=== PATIENT | female | born 1950 | race African-American/Black ===

== ENCOUNTER 2017-01-24 18:06 | Inpatient (IN) ==
[2017-01-24] MEDS ORDERED: methylPREDNISolone SOD SUC 125 MG/2 ML VIAL IV STA (18:54)
[2017-01-24] MEDS ORDERED: MORPHINE 2 MG/1 ML SYRINGE IV STA (18:54)
[2017-01-24] MEDS ORDERED: FUROSEMIDE 40 MG/4 ML VIAL IV STA (18:54)
[2017-01-24] MEDS ORDERED: ALBUTEROL/IPRATROPIUM 3 ML NEB RESP TX STA (18:54)
[2017-01-24] MEDS ORDERED: ALUM/MAG/SIMETH/LIDO VISC 1:1 30 ML BOTTLE PO STA (18:54)
[2017-01-24] MEDS ORDERED: ONDANSETRON 4 MG/2 ML VIAL IV STA (18:54)
[2017-01-24] MEDS ORDERED: NITROGLYCERIN 2% OINT 1 INCH/GM PACK TOP STA (18:54)
[2017-01-24] MEDS ORDERED: ASPIRIN 325 MG TABLET PO STA (18:54)
[2017-01-24] MEDS ORDERED: ASPIRIN 325 MG TABLET ONE (19:11)
[2017-01-24] MEDS ORDERED: MORPHINE 2 MG/1 ML SYRINGE ONE (19:11)
[2017-01-24] MEDS ORDERED: NITROGLYCERIN 2% OINT 1 INCH/GM PACK TOP ONE (19:11)
[2017-01-24] MEDS ORDERED: ONDANSETRON 4 MG/2 ML VIAL ONE (19:11)
[2017-01-24] MEDS ORDERED: ALUM/MAG/SIMETH/LIDO VISC 1:1 30 ML BOTTLE PO ONE (19:11)
[2017-01-24 19:13] LABS: Basophils % 0.3 % (0.0-0.8); Hematocrit 36.3 VOL% (35.7-47.0); Hemoglobin 12.1 GM/DL (12.0-16.0); Immature Granulocytes % 0.1 %; Immature Granulocytes Absolute 0.01 #; Lymphocytes # 2.1 10*3/uL (1.4-4.0); Lymphocytes % 31.4 % (21.3-54.2); Mean Corpuscular HGB Conc 33.3 GM/DL (32-36); Mean Corpuscular Hemoglobin 30 PG (27-34); Mean Corpuscular Volume 89.6 FL (87-102); Mean Platelet Volume 11.5 FL (9.6-12.0); Monocytes # 0.9 10*3/uL (0.11-0.8); Monocytes % 12.7 % (1.7-12.7); Neutrophils # 3.7 10*3/uL (1.4-7.4); Neutrophils % 55.5 % (38.7-73.9); Platelet Count 232 T/CUMM (130-400); Red Blood Count 4.05 MC/CUMM (3.8-5.5); Red Cell Distribution Width 13.8 % (9.3-17.3); White Blood Count 6.7 T/CUMM (4-12)
--- NOTE | 2017-01-24 19:15 | Emergency Department Note ---
Tati Son Gwan, am scribing for, and in the presence of, Darren Pop MD 18 :43. Donn Son Charles R, MD, personally performed the services described in this documentation, ascribed by Jb Duffy in my presence, and it is both accurate and complete 915 . Arrival - Arrival Chief Complaint: Chest Pain Stated Complaint: Chest pain, sob, soreness in chest ED Nursing Triage Note: c/o left sided chest pain onset approx 4 days ago. Describes as aching. +shortness of breath. +nausea. Mode of Arrival: Ambulatory Limitations: No Limitations Source: Patient, Old Records Reviewed, RN Notes Reviewed Time Seen by Provider: 01/24/17 18:28 - History of Present Illness HPI Narrative: Patient is a 67 y/o obese black female who presents to the ED with a c/o left sided chest pain with an onset 4 days ago. Patient describes discomfort as an ache and that she has associated SOB, dyspnea and nausea. She confirmed that she has a PMHx of asthma, seizure disorder, CHF, IDDM and that she had a stent placement in [address] Bauer. Patient is being followed by Dr. Brewer. During exam, patient appeared to be SOB with talking. No other problems/ complaints reported in ED. Onset (ago): day(s) Consistency: constant Severity: moderate Date of Last Menstrual Period: PM Allergies/Adverse Reactions: Allergies Allergy/AdvReac Type Severity Reaction Status Date / Time No Known Allergies Allergy Verified 01/24/17 18:11 Home Medications: Home Medications Medication Instructions Recorded Confirmed Type Amlodipine Besylate 10 mg PO DAILY 06/03/15 01/15/16 History Beclomethasone 80 Mcg Inhaler 80 mcg INH BID 06/03/15 01/15/16 History [Qvar 80 Mcg] Benazepril HCl [Lotensin] 20 mg PO DAILY 06/03/15 01/15/16 History Carvedilol 1 tablet PO BID 06/03/15 01/15/16 History Cetirizine HCl [Cetirizine Tab] 10 mg PO DAILY 06/03/15 01/15/16 History Citalopram Hydrobromide 20 mg PO DAILY 06/03/15 01/15/16 History [Citalopram HBr] Fluticasone 50 Mcg Nasal [place] 2 spray BOTH NARES DAILY 06/03/15 01/15/16 History [Flonase Nasal [place]] Furosemide Tab [Lasix Tab] 20 mg PO DAILY 06/03/15 01/15/16 History Melatonin/Pyridoxine HCl (B6) 1 tablet PO BEDTIME 06/03/15 01/15/16 History [Melatonin 3 mg Tablet] OXcarbazepine [Trileptal] 3 tablet PO BID 06/03/15 01/15/16 History Pravastatin Sodium 40 mg PO DAILY 06/03/15 01/15/16 History hydrALAZINE TAB [Apresoline Tab] 100 mg PO TID 06/03/15 01/15/16 History metFORMIN [Glucophage] 500 mg PO DAILY W/BREAKFAST 06/03/15 01/15/16 History Cholecalciferol (Vitamin D3) 2,000 unit PO DAILY 11/17/15 01/15/16 History [Vitamin D3] Insulin Detemir [Levemir] 45 unit SUBCUT BEDTIME 11/17/15 01/15/16 History Ipratropium/Albuterol Inhaler 1 puff INH QID 11/17/15 01/15/16 History [Combivent Respimat Inhaler] Meclizine [Antivert] 25 mg PO TID #14 tablet 01/16/16 Rx Review of System - Review of System 12 point system: reviewed and no additional remarkable complaints except as stated - Review of System Respiratory: Present: as per HPI, other (shortness of breathe). Absent: wheezing Cardiovascular: Present: as per HPI, chest pain. Absent: edema Gastrointestinal: Present: as per HPI, nausea. Absent: abdominal pain, vomiting Medical,Surgical,& Family Hx - Medical History Cardio: History of: Congenital Heart Disease, CHF, Hypertension Psychological: History of: Depression Neurology: History of: Seizures, TIA Endocrine: History of: Diabetes Mellitus (IDDM) Respiratory: History of: Asthma Gastrointestinal: History of: GERD Musculoskeletal: History of: Back/Neck Problems, Osteoporosis, Musculoskeletal Problems No history of: Amputation - Surgical History Thoracic Surgeries: Patient denies;: Organ Transplant Neurologic Surgeries: Patient denies: Neurologic Surgery Reproductive Surgeries: Surgical HX of;: Tubal Ligation Patient denies;: Gynecologic Surgery Orthopedic Surgeries: Surgical HX of;: Orthopedic Surgery (minsc tear) - Family History Family History: Reports;: Family Hypertension - Social History Smoking Status: Never smoker Frequency of Alcohol Use: None Type of Drug Use: None Exam Vital Signs: Vital Signs Temperature 96.8 F L 01/24/17 18:37 Pulse Rate 77 01/24/17 18:37 Respiratory Rate 22 01/24/17 18:37 Blood Pressure 191/76 01/24/17 18:37 O2 Sat by Pulse Oximetry 95 01/24/17 18:08 - General General appearance: alert, in no apparent distress - Head Head exam: Present: atraumatic, normocephalic - Eye Eye exam: Present: normal appearance, PERRL, EOMI - ENT ENT exam: Present: normal oropharynx, mucous membranes moist, TM's normal bilaterally, normal external ear exam - Neck Neck exam: Present: full ROM, trachea midline. Absent: tenderness - Chest Chest inspection: Present: symmetric chest wall rise. Absent: tenderness - Respiratory Respiratory exam: Present: rales, wheezes (bilaterally), other (decreased breathe sounds) - Cardiovascular Cardiovascular exam: Present: regular rate, tachycardia - Abdominal Exam Abdominal exam: Present: soft, normal bowel sounds. Absent: distention, tenderness - Extremities Exam Extremities exam: Present: full ROM, other (+1 edema bilateral LE). Absent: tenderness - Back Exam Back exam: Present: full ROM. Absent: tenderness - Neurological Exam Neurological exam: Present: alert, oriented X3, CN II-XII intact. Absent: motor sensory deficit - Psychiatric Psychiatric exam: Present: normal affect, normal mood - Skin Skin exam: Present: warm, dry, intact, normal color Course - Consultations Consultation #1: Dr. Mayfield will admit patient Time: 20:24 Results - Labs CBC & BMP: 01/24/17 18:52 01/24/17 18:52 Lab Results: I have reviewed the patients labs Labs: Laboratory Tests 01/24/17 18:52 WBC 6.7 RBC 4.05 Hgb 12.1 Hct 36.3 Plt Count 232 [place] # (Auto) 0.9 H Laboratory Tests 01/24/17 18:52 INR 1.0 PT Patient/Control Mix 10.9 D-Dimer, Quantitative 0.8 Laboratory Tests 01/24/17 01/24/17 01/24/17 18:52 18:52 18:52 Sodium 137 Potassium 4.1 Chloride 103 Carbon Dioxide 27 BUN 12 Creatinine 0.70 Glucose 159 H Alkaline Phosphatase 154 H B-Natriuretic Peptide 199 H Globulin 3.6 H Albumin/Globulin Ratio 0.9 L Lipase 181.0 Urine pH 7.0 Ur Specific [place] 1.009 Urine Urobilinogen < 2.0 H Urine Leukocytes Moderate H Urine RBC 1 Urine WBC 1 Disposition Clinical Impression: Chest pain, UTI (urinary tract infection), Exertional dyspnea Case discussed with: patient, patient's family Disposition: Still a Patient Condition: Stable Time of Disposition: 20:26 Contact your physician if you experience:: fever over 101, Difficulty voiding, Redness or swelling, Nausea/Vomiting, Shortness of breath, Bleeding, pain uncontrolled by pain medications, Other Return to the Emergency Department if:: fever over 101, Difficulty voiding, Redness or swelling, Nausea/Vomiting, Shortness of breath, Bleeding, pain uncontrolled by pain medications, Other
[2017-01-24 19:28] LABS: D-Dimer 0.8 MG/L FEU; PT Patient Result 10.9 SECS
[2017-01-24 19:37] LABS: Apearance,Urine CLEAR (Clear); Bilirubin,Urine Negative (Negative); Blood, Urine Negative (Negative); Glucose,Urine (UA) Negative (Negative); Ketones,Urine Negative (Negative); Nitrite,Urine Negative (Negative); Protein,Urine Negative; RBC,Urine 1 /HPF (0-4); Urine Color Straw (Yellow); Urine Specific Gravity 1.009 (1.001-1.035); Urine Urobilinogen < 2.0 EU/DL (0.2-1.0); WBC,Urine 1 /HPF (0-6)
[2017-01-24 19:39] LABS: Alanine Aminotransferase 32 U/L (13-56); Albumin 3.5 G/DL (3.4-5.0); Alkaline Phosphatase 154 U/L (45-117); Aspartate Amino Transferase 26 U/L (0-37); Bilirubin,Total < 0.39 MG/DL (0.2-1.0); Blood Urea Nitrogen 12 MG/DL (7-18); Calcium 8.9 MG/DL (8.5-10.1); Glucose 159 MG/DL (74-106); Osmolality,Calculated 275.8 MOS/KG (273-304); Potassium 4.1 MMOL/L (3.5-5.1); Sodium 137 MMOL/L (136-145); Total Protein 7.1 G/DL (6.4-8.3); Troponin I Only 0.018 NG/ML (0.00-0.045)
[2017-01-24] MEDS ORDERED: FUROSEMIDE 40 MG/4 ML VIAL ONE (19:43)
[2017-01-24] MEDS ORDERED: cefTRIAXone 1,000 MG in SODIUM CHLORIDE 0.9% 100 ML IV STA (20:08)
[2017-01-24] MEDS ORDERED: SODIUM CHLORIDE 0.9% 100 ML IV ONE (20:27)
[2017-01-24] MEDS ORDERED: cefTRIAXone 1,000 MG VIAL ONE (20:27)
--- NOTE | 2017-01-24 21:37 | XRay Report ---
Exam: XR chest 2V Indication: Cardiomegaly, chest pain Comparison study: Prior chest radiograph 01/16/2016 Findings: Cardiac silhouette is enlarged, similar to prior there is similar prominence of the perihilar regions bilaterally, which is nonspecific. There is no focal consolidation, pneumothorax or pleural effusion identified. Impression: Similar cardiomegaly and prominence of the perihilar regions may represent prominent vasculature. However a degree of underlying interstitial scarring and/or interstitial edema however is not excluded. No definite focal consolidation is visualized. PROCEDURE INTERPRETED AT [facility] DEPARTMENT OF RADIOLOGY Final Report Signed by: Hola Smith
[2017-01-24] MEDS ORDERED: MAGNESIUM SULF RIDER 4 GM in PREMIX 1 EACH IV PRN (21:54)
[2017-01-24] MEDS ORDERED: GLUCAGON 1 MG VIAL IM PRN (21:54)
[2017-01-24] MEDS ORDERED: ALBUTEROL/IPRATROPIUM 3 ML NEB RESP TX PRN (21:54)
[2017-01-24] MEDS ORDERED: MAGNESIUM SULF RIDER 2 GM in PREMIX 1 EACH IV PRN (21:54)
[2017-01-24] MEDS ORDERED: MORPHINE 2 MG/1 ML SYRINGE IV PRN (21:54)
[2017-01-24] MEDS ORDERED: ONDANSETRON 4 MG/2 ML VIAL IV PRN (21:54)
[2017-01-24] MEDS ORDERED: DEXTROSE 50% 25 GM/50 ML SYRINGE IV PRN (21:54)
[2017-01-24] MEDS ORDERED: POTASSIUM CHLORIDE 20 MEQ TABLET PO PRN (21:54)
--- NOTE | 2017-01-24 22:09 | EKG Report ---
Stationary ECG Study [facility] Test Date: 01/24/2017 10:06:43 PM Pat Name: SANDRA CHAVEZ Department: Room: 278 Gender: F Copyholder: : 1950 Requested by: Darren Bales Order Number: [id number] Reading MD: DINAH OGDEN Intervals [place] Rate: 68 P: 30 CT: 203 QRS: 75 QRSD: 88 T: 66 QT: 430 QTc: 446 Interpretive Statements SINUS RHYTHM MODERATE VOLTAGE CRITERIA FOR LVH, MAY BE NORMAL VARIANT Electronically Signed On 01-25-17 13:59:54 CDT by DINAH OGDEN [id number]
[2017-01-24] MEDS: INSULIN REGULAR 100 UNIT/ML SUBCUT SCH (22:26)
[2017-01-24] MEDS: ENOXAPARIN 100 MG/ML SYRINGE SUBCUT SCH (22:32)
[2017-01-25] MEDS: NITROGLYCERIN 2% OINT 1 INCH/GM PACK TOP SCH ×4 (00:10→19:14)
--- NOTE | 2017-01-25 00:48 | EKG Report ---
Stationary ECG Study [facility] Test Date: 01/25/2017 12:44:59 AM Pat Name: SANDRA CHAVEZ Department: Room: 278 Gender: F Second Facing Baster: : 1950 Requested by: Darren Bales Order Number: [id number] Reading MD: DINAH OGDEN Intervals [place] Rate: 61 P: 31 [place]: 198 QRS: 78 QRSD: 100 T: 68 QT: 467 QTc: 469 Interpretive Statements SINUS RHYTHM WITH OCCASIONAL VENTRICULAR PREMATURE COMPLEXES POSSIBLE LEFT VENTRICULAR HYPERTROPHY LONG QT INTERVAL WARNING: DATA QUALITY MAY AFFECT INTERPRETATION Electronically Signed On 01-25-17 14:01:39 CDT by DINAH OGDEN [email or web address]
[2017-01-25 01:27] LABS: Basophils % 0.4 % (0.0-0.8); Hematocrit 35.2 VOL% (35.7-47.0); Hemoglobin 11.8 GM/DL (12.0-16.0); Immature Granulocytes % 0.3 %; Immature Granulocytes Absolute 0.02 #; Lymphocytes # 3.1 10*3/uL (1.4-4.0); Mean Corpuscular HGB Conc 33.5 GM/DL (32-36); Mean Corpuscular Hemoglobin 30 PG (27-34); Mean Corpuscular Volume 90.5 FL (87-102); Mean Platelet Volume 10.7 FL (9.6-12.0); Monocytes # 0.8 10*3/uL (0.11-0.8); Monocytes % 11.8 % (1.7-12.7); Neutrophils # 2.8 10*3/uL (1.4-7.4); Neutrophils % 41.5 % (38.7-73.9); Platelet Count 226 T/CUMM (130-400); Red Blood Count 3.89 MC/CUMM (3.8-5.5); Red Cell Distribution Width 13.7 % (9.3-17.3); White Blood Count 6.7 T/CUMM (4-12)
[2017-01-25 02:10] LABS: Alanine Aminotransferase 28 U/L (13-56); Albumin 3.4 G/DL (3.4-5.0); Alkaline Phosphatase 147 U/L (45-117); Aspartate Amino Transferase 16 U/L (0-37); Bilirubin,Total < 0.39 MG/DL (0.2-1.0); Blood Urea Nitrogen 12 MG/DL (7-18); Calcium 8.7 MG/DL (8.5-10.1); Cholesterol 150 MG/DL (50-200); Glucose 181 MG/DL (74-106); HDL Cholesterol 61 MG/DL (40-60); Magnesium 2.1 MG/DL (1.8-2.4); Osmolality,Calculated 277.8 MOS/KG (273-304); Potassium 3.8 MMOL/L (3.5-5.1); Risk Ratio 2.46; Sodium 137 MMOL/L (136-145); Total Protein 6.7 G/DL (6.4-8.3); Triglycerides 65 MG/DL (2-150)
--- NOTE | 2017-01-25 05:57 | EKG Report ---
Stationary ECG Study [facility] Test Date: 01/24/2017 6:13:57 PM Pat Name: SANDRA CHAVEZ Department: Room: 278 Gender: F [employer]: Martha Ruby : 1950 Requested by: Darren Bales Order Number: [id number] Reading MD: DINAH OGDEN Intervals [place] Rate: 78 P: 78 [place]: 205 QRS: 81 QRSD: 86 T: 78 QT: 402 QTc: 436 Interpretive Statements SINUS RHYTHM WITH OCCASIONAL SUPRAVENTRICULAR PREMATURE COMPLEXES VOLTAGE CRITERIA FOR LVH CANNOT RULE OUT SEPTAL INFARCT, PROBABLY OLD Electronically Signed On 01-25-17 13:57:28 CDT by DINAH OGDEN [email or web address]
--- NOTE | 2017-01-25 07:28 | XRay Report ---
Exam: XR chest 1V portable Date: 01/25/2017 4:00 AM Indication: Shortness of breath Comparison: 01/24/2017 Technical: AP Findings: External cardiac leads are present. Lateral marginal osteophytes are noted. Persistent cardiomegaly and mild interstitial edema shunt vascularity and tiny effusion left base. No pneumothorax. Mediastinum is intact Impression: 1. Cardiomegaly with mild interstitial edema CHF and tiny effusions left greater than right PROCEDURE INTERPRETED AT [facility] DEPARTMENT OF RADIOLOGY Final Report Signed by: Dr. Jaxson Kamara
[2017-01-25] MEDS: PANTOPRAZOLE 40 MG TABLET PO SCH (09:12)
[2017-01-25] MEDS: ENOXAPARIN 100 MG/ML SYRINGE SUBCUT SCH ×2 (09:12→20:54)
[2017-01-25] MEDS: ASPIRIN EC 325 MG TABLET PO SCH (09:12)
[2017-01-25] MEDS: INSULIN REGULAR 100 UNIT/ML SUBCUT SCH ×4 (09:35→21:06)
--- NOTE | 2017-01-25 12:22 | Event Note ---
Patient underwent cardiac stress test today. She achieved target heart rate without difficulty [place] protocol. She was without complaints of chest pain , heaviness or tightness. However, she was noted to have very poor exercise tolerance. She experienced significant dyspnea on exertion and fatigue. Frequent occurrences of PVCs. ST depression noted in inferiolateral leads. Patient now on to final nuclear scan. Dr. Mayfield to read, interpret and advise.
--- NOTE | 2017-01-25 13:15 | Cardiology History & Physical ---
Guero Son Vanessa, RN, am scribing for, and in the presence of, Elizabeth Mayfield MD 13:14. Assessment and Plan - Time spent with patient Time spent with patient: Greater than 30 minutes (Due to assessment, planning, documentation, and medication review) (1) Chest pain Status: Acute Assessment and plan: SEE PLAN OF CARE LISTED BELOW. Current Visit: Yes (2) Exertional dyspnea Status: Chronic Assessment and plan: SEE PLAN OF CARE LISTED BELOW. Current Visit: Yes (3) UTI (urinary tract infection) Status: Acute Assessment and plan: SEE PLAN OF CARE LISTED BELOW. Current Visit: Yes (4) Hypercholesterolemia Status: Chronic Assessment and plan: SEE PLAN OF CARE LISTED BELOW. Current Visit: No (5) Obesity Status: Chronic Assessment and plan: SEE PLAN OF CARE LISTED BELOW. Current Visit: No (6) Obstructive sleep apnea Status: Chronic Assessment and plan: SEE PLAN OF CARE LISTED BELOW. Current Visit: No (7) Secondary pulmonary hypertension Status: Chronic Assessment and plan: SEE PLAN OF CARE LISTED BELOW. Current Visit: No (8) Seizure disorder Status: Chronic Assessment and plan: SEE PLAN OF CARE LISTED BELOW. Current Visit: Yes (9) Depression Status: Chronic Assessment and plan: SEE PLAN OF CARE LISTED BELOW. Current Visit: No (10) Diabetes Status: Chronic Assessment and plan: SEE PLAN OF CARE LISTED BELOW. 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 Sullivan, 67 year old BF, PMHx hypertension, diabetes, hyperlipidemia, GAYLA with CPAP nightly, and has never been a smoker. Other history includes seizure disorder and reports recent diagnosis of asthma which she uses inhalers and as needed nebulizer treatments. Patient has severe pulmonary hypertension (PA pressure 55-60 mmHg) due to obstructive sleep apnea and diastolic dysfunction. She had an abnormal Cardiolite stress test in October 2015 demonstrating anterior ischemia, poor work capacity, and moderate global hypokinesis. Subsequent left and right heart catheterization in October 2015 with widely patent coronary arteries, EF 45%, severe pulmonary HTN. She has chronic dyspnea and is easily fatigued. Family is present and reports that she can no longer complete her shopping at [employer] because she becomes too tired, and this is a decline in her usual exercise tolerance and enthusiasm. Patient was last seen by primary associate professor of psychology in clinic on September 28, and she was not having any anginal or syncopal complaint. He is now admitted to [facility]'s telemetry unit after presenting overnight to the ED with chief complaint of left-sided chest pain and exertional dyspnea with onset 4 days prior to presentation. EKG and cardiac biomarkers negative for ischemic finding. Moderate leukocytosis per UA. BNP 199. Chest x-ray with cardiomegaly, mild CHF. Patient received IV Lasix in ER last night, and she reports moderate urine output overnight and this morning. Also received IV Rocephin for empiric treatment of UTI, and has been started on daily dose. Urine culture pending. Upon exam, she is not having orthopnea, palpitations, PND, or significant lower extremity edema. Reports that she did have some swelling of the lower extremities yesterday, but this is much improved after IV diuretic. Some mild dyspnea with conversation. Left chest pain, non radiating, described as "sore and tender", is reproducible with palpation of area, and patient says this is the same chest discomfort she has experienced over the past few days. Admits to some dizziness over the last few days as well. Denies fever or chills. Says she has a chronic, nonproductive cough usually in the mornings after first waking and contributes this to CPAP use. Neither cough nor phlegm color has changed recently. No abdominal pain, hematuria, hemoptysis, dark tarry stools. Reports she is comfortable at this time, and she is hungry. Regular rate and rhythm per vehicle monitor technician, HR 60s. SBP 140-160 mmHg. Labs reviewed. Cell counts stable. Electrolytes within acceptable range. Fasting lipid panel unremarkable. Renal function stable with creatinine 0.7. ASSESSMENT/PLAN: 1. CHEST PAIN-no clinical findings to suggest ACS. Chest pain is atypical and is reproducible with palpation. However, she does have some dyspnea on exertion that can represent an anginal equivalent. We will further risk stratify with stress testing. 2. UTI-moderate leukocytosis per UA, and she is receiving empirical IV Rocephin. Urine culture is pending. 3. EXERTIONAL DYSPNEA-chronically short of breath and is multifactorial due to obstructive sleep apnea, severe pulmonary hypertension with diastolic dysfunction, asthma, obesity. This could represent an anginal equivalent so we will further risk stratify her with stress testing. 4. HYPERTENSION-suboptimally controlled at this time. We will review home medications, resume, and adjust antihypertensive regimen as indicated. 5. OBSTRUCTIVE SLEEP APNEA-reports complete compliance with CPAP each night. Continue CPAP. 6. DIABETES-resume Glucophage and Levemir insulin. Accu-Cheks before meals at bedtime. 7. DYSLIPIDEMIA-we will continue pravastatin 40 mg by mouth nightly. Fasting lipid panel this admit unremarkable. 8. SEIZURE DISORDER-continue Trileptal. Reports last seizure has been greater than 1 year ago. 9. DEPRESSION-chronic. Stable. Continue citalopram. 10. ASTHMA-continue as needed duo nebs, continue inhalers from home medication. Home Medications Medication Instructions Recorded Confirmed Type Amlodipine Besylate 10 mg PO QAM 06/03/15 01/24/17 History Beclomethasone 80 Mcg Inhaler 80 mcg INH BID 06/03/15 01/24/17 History [Qvar 80 Mcg] Benazepril HCl [Lotensin] 20 mg PO QAM 06/03/15 01/24/17 History Citalopram Hydrobromide 20 mg PO QAM 06/03/15 01/24/17 History [Citalopram HBr] Fluticasone 50 Mcg Nasal Alva 2 spray BOTH NARES QAM 06/03/15 01/24/17 History [Flonase Nasal Alva] Furosemide Tab [Lasix Tab] 20 mg PO QAM 06/03/15 01/24/17 History OXcarbazepine [Trileptal] 900 tablet PO QAM 06/03/15 01/24/17 History Pravastatin Sodium 40 mg PO BEDTIME 06/03/15 01/24/17 History hydrALAZINE TAB [Apresoline Tab] 100 mg PO TID 06/03/15 01/24/17 History metFORMIN [Glucophage] 500 mg PO DAILY W/BREAKFAST 06/03/15 01/24/17 History Insulin Detemir [Levemir] 45 unit SUBCUT BEDTIME 11/17/15 01/24/17 History Ipratropium/Albuterol Inhaler 1 puff INH QID 11/17/15 01/24/17 History [Combivent Respimat Inhaler] Albuterol/Ipratropium Neb [Duoneb] 3 ml RESP TX RT Q4H PRN 01/24/17 01/24/17 History Carvedilol [Carvedilol] 25 mg PO BID 01/24/17 01/24/17 History OXcarbazepine [Oxcarbazepine] 1,200 mg PO QPM 01/24/17 01/24/17 History traZODone [Desyrel] 50 mg PO BEDTIME PRN 01/24/17 01/24/17 History Allergies Allergy/AdvReac Type Severity Reaction Status Date / Time No Known Allergies Allergy Verified 01/24/17 18:11 - Constitutional Constitutional: Absent: anorexia, chills, daytime sleepiness, fatigue, fever(s) , weakness, weight gain, weight loss - EENT Eyes: Absent: blurry vision Ears: Absent: decreased hearing Nose, mouth and throat: Absent: dysphagia, epistaxis, neck pain, sinus pressure , throat swelling - Cardiovascular Cardiovascular: Present: chest pain at rest, dyspnea on exertion. Absent: diaphoresis, edema, radiating jaw, neck or arm pain, lightheadedness, orthopnea , palpitations, PND - Respiratory Respiratory: Present: cough (Nonproductive), dyspnea on exertion, wheezing. Absent: hemoptysis, change in phlegm color - Gastrointestinal Gastrointestinal: Present: constipation, heartburn. Absent: abdominal pain, bloating, diarrhea, dysphagia, early satiety, hematemesis, hematochezia, melena , nausea, vomiting, jaundice - Genitourinary Genitourinary: Absent: dysuria, flank pain, hematuria - Musculoskeletal Musculoskeletal: Present: arthralgias. Absent: limited range of motion, myalgias - Neurological Neurological: Absent: abnormal gait, abnormal speech, confusion, dizziness, syncope, tremor(s) - Psychiatric Psychiatric: Absent: anxiety, depression - Endocrine Endocrine: Absent: cold intolerance - Hematologic/Lymphatic Hematologic/Lymphatic: Absent: easy bleeding, easy bruising Medical,Surgical,& Family Hx - Medical History Cardio: History of: Congenital Heart Disease, CHF, Hypertension No history of: Cardiac Dysrhythmia, MS, Pacemaker, PVD Psychological: History of: Depression No history of: Anxiety Disorders Neurology: History of: Seizures, TIA Endocrine: History of: Diabetes Mellitus (IDDM), Dyslipidemia No history of: Thyroid Disorder Respiratory: History of: Asthma, Pulmonary Hypertension No history of: COPD Renal: No history of: Dialysis, Renal Problems Genitourinary: No history of: Bladder Problem, Kidney Stones Gastrointestinal: History of: GERD No history of: Esophageal Varices, Gastrointestinal Bleed, Hepatitis, Pancreatitis Musculoskeletal: History of: Back/Neck Problems, Osteoporosis, Musculoskeletal Problems No history of: Amputation Hematology: History of: Anemia, Bleeding Problems No history of: Blood Transfusion Reaction Reproductive: No history of: Breast Cancer Other: No history of: Cancer, HIV - Surgical History Cardiac Surgeries: Sugical HX of: Cardiac Catheterization Thoracic Surgeries: Patient denies;: Organ Transplant Neurologic Surgeries: Patient denies: Neurologic Surgery HEENT Surgeries: Surgical HX of: Eye Surgery Reproductive Surgeries: Surgical HX of;: Tubal Ligation Patient denies;: Gynecologic Surgery Orthopedic Surgeries: Surgical HX of;: Orthopedic Surgery (minsc tear) - Family History Family History: Reports;: Family Cancer, Family Heart Disease, Family Hypertension - Social History Smoking Status: Never smoker Frequency of Alcohol Use: None Type of Drug Use: None Functional capacity: independent ambulation Cardiology Physical Exam - Constitutional Vitals: Vital Signs Temp Pulse Resp BP Pulse Ox 97.7 F 64 18 161/74 94 L 01/25/17 04:00 01/25/17 04:00 01/25/17 06:00 01/25/17 04:00 01/25/17 04:00 Intake and Output 01/24/17 01/25/17 01/25/17 22:59 06:59 14:59 Intake Total 0 / 0 Output Total 800 / 800 Balance -800 / -800 Intake: Oral 0 / 0 Output: Urine 800 / 800 Other: Weight 235 lb 8 oz 236 lb 9 oz General appearance: no acute distress, morbidly obese - Head Head exam: Present: normal inspection, atraumatic. Absent: abrasion, contusion - Eye Eye exam: Present: EOMI. Absent: periorbital swelling, scleral icterus Pupils: Present: NELDA. Absent: fixed, irregular - ENT ENT exam: Present: normal external ear exam - Neck Neck exam: Present: normal inspection. Absent: tenderness - Respiratory Respiratory exam: Present: clear to auscultation bilaterally, decreased breath sounds - Cardiovascular Cardiovascular exam: Present: regular rate and rhythm, systolic murmur. Absent : JVD - GI/Abdominal GI/Abdominal exam: Present: normal bowel sounds, soft. Absent: ascites, distended, firm, tenderness - Extremities Exam Extremities exam: Present: normal capillary refill, full ROM. Absent: calf tenderness, edema - Back Exam Back exam: Present: normal inspection. Absent: CVA tenderness (L), CVA tenderness (R) - Neurological Exam Neurological exam: Present: alert, oriented X3. Absent: altered - Psychiatric Psychiatric exam: Present: normal affect, normal mood. Absent: agitated, anxious, depressed - Skin Skin exam: Present: normal color, warm, dry, intact. Absent: abrasion, cyanosis , diaphoretic, rash Result/EKG - Labs CBC & BMP: 01/25/17 01:17 01/25/17 01:17 Lab Results: I have reviewed the past 24 hour labs Labs: Laboratory Results - last 24 hr 01/24/17 01/24/17 01/24/17 18:52 18:52 18:52 WBC RBC Hgb Hct MCV MCH MCHC RDW Plt Count MPV Neut % (Auto) Lymph % (Auto) Dyer % (Auto) Eos % (Auto) Baso % (Auto) Neut # (Auto) Lymph # (Auto) Dyer # (Auto) Eos # (Auto) Baso # (Auto) Immature Gran % Nucleated RBC % Immature Gran # Nucleated RBCs # Immature Plt Fraction INR 1.0 PT Patient/Control Mix 10.9 D-Dimer, Quantitative 0.8 Sodium 137 Potassium 4.1 Chloride 103 Carbon Dioxide 27 Anion Gap 11.1 BUN 12 Creatinine 0.70 GFR Calculation 128 BUN/Creatinine Ratio 17.00 Glucose 159 H POC Glucose Calculated Osmolality 275.8 Calcium 8.9 Magnesium 2.0 Total Bilirubin < 0.39 AST 26 ALT 32 Alkaline Phosphatase 154 H Troponin I 0.018 B-Natriuretic Peptide Total Protein 7.1 Albumin 3.5 Globulin 3.6 H Albumin/Globulin Ratio 0.9 L Triglycerides Cholesterol LDL Cholesterol VLDL Cholesterol HDL Cholesterol Heart Disease Risk Ratio Lipase 181.0 Urine Color Straw Urine Appearance Clear Urine pH 7.0 Ur Specific Kemp 1.009 Urine Protein Negative Urine Glucose (UA) Negative Urine Ketones Negative Urine Blood Negative Urine Nitrate Negative Urine Bilirubin Negative Urine Urobilinogen < 2.0 H Urine Leukocytes Moderate H Urine RBC 1 Urine WBC 1 Ur Culture Indicated? Results to follow 01/24/17 01/24/17 01/24/17 18:52 18:52 22:17 WBC 6.7 RBC 4.05 Hgb 12.1 Hct 36.3 MCV 89.6 MCH 30 MCHC 33.3 RDW 13.8 Plt Count 232 MPV 11.5 Neut % (Auto) 55.5 Lymph % (Auto) 31.4 Dyer % (Auto) 12.7 Eos % (Auto) 0.0 Baso % (Auto) 0.3 Neut # (Auto) 3.7 Lymph # (Auto) 2.1 Dyer # (Auto) 0.9 H Eos # (Auto) 0.0 Baso # (Auto) 0.0 Immature Gran % 0.1 Nucleated RBC % 0.0 Immature Gran # 0.01 Nucleated RBCs # 0.00 Immature Plt Fraction 0.0 INR PT Patient/Control Mix D-Dimer, Quantitative Sodium Potassium Chloride Carbon Dioxide Anion Gap BUN Creatinine GFR Calculation BUN/Creatinine Ratio Glucose POC Glucose Calculated Osmolality Calcium Magnesium Total Bilirubin AST ALT Alkaline Phosphatase Troponin I 0.017 B-Natriuretic Peptide 199 H Total Protein Albumin Globulin Albumin/Globulin Ratio Triglycerides Cholesterol LDL Cholesterol VLDL Cholesterol HDL Cholesterol Heart Disease Risk Ratio Lipase Urine Color Urine Appearance Urine pH Ur Specific Kemp Urine Protein Urine Glucose (UA) Urine Ketones Urine Blood Urine Nitrate Urine Bilirubin Urine Urobilinogen Urine Leukocytes Urine RBC Urine WBC Ur Culture Indicated? 01/25/17 01/25/17 01/25/17 01:17 01:17 01:17 WBC 6.7 RBC 3.89 Hgb 11.8 L Hct 35.2 L MCV 90.5 MCH 30 MCHC 33.5 RDW 13.7 Plt Count 226 MPV 10.7 Neut % (Auto) 41.5 Lymph % (Auto) 46.0 Dyer % (Auto) 11.8 Eos % (Auto) 0.0 Baso % (Auto) 0.4 Neut # (Auto) 2.8 Lymph # (Auto) 3.1 Dyer # (Auto) 0.8 Eos # (Auto) 0.0 Baso # (Auto) 0.0 Immature Gran % 0.3 Nucleated RBC % 0.0 Immature Gran # 0.02 Nucleated RBCs # 0.00 Immature Plt Fraction 0.0 INR PT Patient/Control Mix D-Dimer, Quantitative Sodium 137 Potassium 3.8 Chloride 99 Carbon Dioxide 33 H Anion Gap 8.8 BUN 12 Creatinine 0.70 GFR Calculation 128 BUN/Creatinine Ratio 17.00 Glucose 181 H POC Glucose Calculated Osmolality 277.8 Calcium 8.7 Magnesium 2.1 Total Bilirubin < 0.39 AST 16 ALT 28 Alkaline Phosphatase 147 H Troponin I 0.019 B-Natriuretic Peptide Total Protein 6.7 Albumin 3.4 Globulin 3.3 Albumin/Globulin Ratio 1.0 L Triglycerides 65 Cholesterol 150 LDL Cholesterol 71.0 VLDL Cholesterol 13.0 HDL Cholesterol 61 H Heart Disease Risk Ratio 2.46 Lipase Urine Color Urine Appearance Urine pH Ur Specific Kemp Urine Protein Urine Glucose (UA) Urine Ketones Urine Blood Urine Nitrate Urine Bilirubin Urine Urobilinogen Urine Leukocytes Urine RBC Urine WBC Ur Culture Indicated? 01/25/17 01/25/17 01:17 07:18 WBC RBC Hgb Hct MCV MCH MCHC RDW Plt Count MPV Neut % (Auto) Lymph % (Auto) Dyer % (Auto) Eos % (Auto) Baso % (Auto) Neut # (Auto) Lymph # (Auto) Dyer # (Auto) Eos # (Auto) Baso # (Auto) Immature Gran % Nucleated RBC % Immature Gran # Nucleated RBCs # Immature Plt Fraction INR PT Patient/Control Mix D-Dimer, Quantitative Sodium Potassium Chloride Carbon Dioxide Anion Gap BUN Creatinine GFR Calculation BUN/Creatinine Ratio Glucose POC Glucose 185 H Calculated Osmolality Calcium Magnesium Total Bilirubin AST ALT Alkaline Phosphatase Troponin I B-Natriuretic Peptide 275 H Total Protein Albumin Globulin Albumin/Globulin Ratio Triglycerides Cholesterol LDL Cholesterol VLDL Cholesterol HDL Cholesterol Heart Disease Risk Ratio Lipase Urine Color Urine Appearance Urine pH Ur Specific Kemp Urine Protein Urine Glucose (UA) Urine Ketones Urine Blood Urine Nitrate Urine Bilirubin Urine Urobilinogen Urine Leukocytes Urine RBC Urine WBC Ur Culture Indicated? - Diagnostic Findings Procedure: Chest x-ray: image reviewed by me, report reviewed by me - EKG EKG results: interpreted by me, no acute changes EKG shows: sinus rhythm IChaparro Jennifer, MD, personally performed the services described in this documentation, ascribed by Re Jack RN in my presence, and it is both accurate and complete 314 .
[2017-01-25] MEDS ORDERED: traZODone 50 MG TABLET PO PRN (14:45)
[2017-01-25] MEDS: BECLOMETHASONE 80 MCG/PUFF INHALER 8.7 GM INH SCH ×2 (16:42→20:54)
--- NOTE | 2017-01-25 18:29 | Nuclear Medicine Report ---
EXERCISE STRESS TEST DATE: 01/25/2017 REFERRING: Elizabeth Mayfield MD INTERPRETING: Elizabeth Mayfield MD INDICATION: History of nonischemic cardiomyopathy, chest pain, shortness of breath. PROCEDURE: The patient underwent exercise Cardiolite per protocol. 10 mCi of Technetium-99 were inj ected for rest imaging. Subsequently, the patient was exercise per Panchito protocol and at peak stress 30 mCi of Technetium-99 was injected for stress imaging. ECG interpretation was supervised by Nishi Zamarripa and reviewed by me. The patient exercised accordi ng to her Panchito protocol for 4 minutes and 46 seconds achieving a maximum heart rate of 135 beats per minute (88% maximum predicted heart rate) and 6.2 METS. Blood pressure was 220/94. She did not exp erience any chest pain. PVCs were noted, which increased during recovery slightly. ST-depression wa s noted in the inferolateral leads that was horizontal or mildly upsloping. SPECT images were obtained in the short axis, horizontal, and vertical and long axis with gating. Ej ection fraction is 45%, end-diastolic volume is 206 mL, end-systolic volume is 114 mL, stroke volume is 92 mL. There is mild global hypokinesis. At rest, there is a large extent [id number] int ensity perfusion defect involving the inferior and anterior wall sparing the apex. There is also a s mall extent, mild intensity basolateral wall perfusion defect. With stress imaging, there is fairly matched stress to rest perfusion, although there is improved perfusion noted in the lateral wall, and the anterior wall perfusion defect is slightly smaller involving less of the distal anterior wall. There is also improved perfusion at the apex. IMPRESSION: 1. MILDLY REDUCED LEFT VENTRICULAR SYSTOLIC FUNCTION WITH GLOBAL HYPOKINESIS. 2. DILATED CARDIOMYOPATHY. 3. LARGE, FIXED PERFUSION DEFECTS IN THE ANTERIOR AND INFERIOR OSMAN DESCRIBED ABOVE WITH MILD IM PROVEMENT WITH STRESS WHEN COMPARED TO REST. THERE IS SIGNIFICANT BREAST ATTENUATION NOTED ON CINE I MAGES, WHICH OBSCURES THIS INTERPRETATION. CLINICAL CORRELATION IS RECOMMENDED. Procedure performed and interpreted at [facility] Department of Radiology.
[2017-01-25] MEDS: OXcarbazepine 300 MG TABLET PO SCH (19:14)
[2017-01-25] MEDS: cefTRIAXone 1,000 MG in SODIUM CHLORIDE 0.9% 100 ML IV SCH (20:52)
[2017-01-25] MEDS: CARVEDILOL 25 MG TABLET PO SCH (20:53)
[2017-01-25] MEDS: PRAVASTATIN 40 MG TABLET PO SCH (20:53)
[2017-01-26] MEDS: NITROGLYCERIN 2% OINT 1 INCH/GM PACK TOP SCH ×4 (00:52→19:35)
[2017-01-26] MEDS ORDERED: metFORMIN 500 MG TABLET PO SCH (08:00)
[2017-01-26] MEDS ORDERED: BENAZEPRIL 10 MG TABLET PO SCH (09:00)
[2017-01-26] MEDS: OXcarbazepine 300 MG TABLET PO SCH ×2 (09:17→19:34)
[2017-01-26] MEDS: FUROSEMIDE 20 MG TABLET PO SCH (09:17)
[2017-01-26] MEDS: ASPIRIN EC 325 MG TABLET PO SCH (09:18)
[2017-01-26] MEDS: amLODIPine 10 MG TABLET PO SCH (09:18)
[2017-01-26] MEDS: PANTOPRAZOLE 40 MG TABLET PO SCH (09:18)
[2017-01-26] MEDS: CARVEDILOL 25 MG TABLET PO SCH (09:19)
[2017-01-26] MEDS: CITALOPRAM 20 MG TABLET PO SCH (09:19)
[2017-01-26] MEDS: INSULIN REGULAR 100 UNIT/ML SUBCUT SCH ×4 (09:20→21:27)
[2017-01-26] MEDS: BECLOMETHASONE 80 MCG/PUFF INHALER 8.7 GM INH SCH ×2 (09:21→21:09)
[2017-01-26] MEDS: ENOXAPARIN 100 MG/ML SYRINGE SUBCUT SCH (09:21)
[2017-01-26] MEDS ORDERED: DIAZEPAM 5 MG TABLET ONE (09:53)
[2017-01-26] MEDS ORDERED: diphenhydrAMINE CAP 50 MG CAPSULE ONE (09:53)
[2017-01-26] MEDS ORDERED: POTASSIUM CHLORIDE RIDER 10 MEQ in PREMIX 1 EACH IV PRN (10:02)
[2017-01-26] MEDS ORDERED: MAGNESIUM SULF RIDER 2 GM in PREMIX 1 EACH IV PRN (10:02)
--- NOTE | 2017-01-26 10:09 | Cardiology Progress Note ---
Assessment and Plan (1) Chest pain Status: Acute Assessment and plan: SEE PLAN OF CARE LISTED BELOW. Current Visit: Yes (2) Exertional dyspnea Status: Chronic Assessment and plan: SEE PLAN OF CARE LISTED BELOW. Current Visit: Yes (3) UTI (urinary tract infection) Status: Acute Assessment and plan: SEE PLAN OF CARE LISTED BELOW. Current Visit: Yes (4) Hypercholesterolemia Status: Chronic Assessment and plan: SEE PLAN OF CARE LISTED BELOW. Current Visit: No (5) Obesity Status: Chronic Assessment and plan: SEE PLAN OF CARE LISTED BELOW. Current Visit: No (6) Obstructive sleep apnea Status: Chronic Assessment and plan: SEE PLAN OF CARE LISTED BELOW. Current Visit: No (7) Secondary pulmonary hypertension Status: Chronic Assessment and plan: SEE PLAN OF CARE LISTED BELOW. Current Visit: No (8) Seizure disorder Status: Chronic Assessment and plan: SEE PLAN OF CARE LISTED BELOW. Current Visit: Yes (9) Depression Status: Chronic Assessment and plan: SEE PLAN OF CARE LISTED BELOW. Current Visit: No (10) Diabetes Status: Chronic Assessment and plan: SEE PLAN OF CARE LISTED BELOW. Current Visit: Yes Cardiology - PN: Subj Interval history: Snap Attacher: Dr. Bauer Summary: Ms. Sullivan, 67 year old BF, PMHx hypertension, diabetes, hyperlipidemia, GAYLA with CPAP nightly, and has never been a smoker. Other history includes seizure disorder and reports recent diagnosis of asthma which she uses inhalers and as needed nebulizer treatments. Patient has severe pulmonary hypertension (PA pressure 55-60 mmHg) due to obstructive sleep apnea and diastolic dysfunction. She had an abnormal Cardiolite stress test in October 2015 demonstrating anterior ischemia, poor work capacity, and moderate global hypokinesis. Subsequent left and right heart catheterization in October 2015 with widely patent coronary arteries, EF 45%, severe pulmonary HTN. She has chronic dyspnea and is easily fatigued. Family is present and reports that she can no longer complete her shopping at [employer] because she becomes too tired, and this is a decline in her usual exercise tolerance and enthusiasm. Patient was last seen by primary recruitment and outreach assistant in clinic on September 28, and she was not having any anginal or syncopal complaint. She was admitted for the symptoms, and also found to have a UTI. Chest x-ray with cardiomegaly, mild CHF. Although BNP is not very elevated. January 26, 2017: EKG portion of her stress testing was abnormal with some ST depression, nuclear imaging showed fixed anterior and inferior wall defects that may have been secondary to breast attenuation, ejection fraction was 45% with some dilation of the LV. She had worsening PVCs during recovery. She continues to have dyspnea when ambulating and is not back to her baseline. We discussed proceeding with cardiac catheterization for definitive diagnosis and she is agreeable. ASSESSMENT/PLAN: 1. CHEST PAIN-no clinical findings to suggest ACS. Chest pain is atypical and is reproducible with palpation. However, she does have some dyspnea on exertion that can represent an anginal equivalent. Stress testing was not definitive and we will proceed with cardiac catheterization. 2. UTI-moderate leukocytosis per UA, and she is receiving empirical IV Rocephin. Urine culture is pending. 3. EXERTIONAL DYSPNEA-chronically short of breath and is multifactorial due to obstructive sleep apnea, severe pulmonary hypertension with diastolic dysfunction, asthma, obesity. This could represent an anginal equivalent. Stress testing was equivocal and we are proceeding with cardiac catheterization. 4. HYPERTENSION-suboptimally controlled at this time. We will review home medications, resume, and adjust antihypertensive regimen as indicated. I am going to switch her Coreg to Bystolic and see if this improves her dyspnea symptoms. 5. OBSTRUCTIVE SLEEP APNEA-reports complete compliance with CPAP each night. Continue CPAP. 6. DIABETES-resume Glucophage and Levemir insulin. Accu-Cheks before meals at bedtime. 7. DYSLIPIDEMIA-we will continue pravastatin 40 mg by mouth nightly. Fasting lipid panel this admit unremarkable. 8. SEIZURE DISORDER-continue Trileptal. Reports last seizure has been greater than 1 year ago. 9. DEPRESSION-chronic. Stable. Continue citalopram. 10. ASTHMA-continue as needed duo nebs, continue inhalers from home medication. I am going to switch her Coreg to Bystolic. Exam (Progress Note) - Constitutional Vitals: Period Temp Pulse Resp BP Sys/Alvarado Pulse Ox Last 24 Hr 96.7 F-98.2 F 61-71 16-18 137-165/7-99 91-95 Exam: General appearance: Obese, no acute distress - Head Head exam: Present: normal inspection, normocephalic, atraumatic. Absent: hematoma, laceration - Eye Eye exam: Present: EOMI. Absent: conjunctival injection, nystagmus, periorbital swelling, scleral icterus, laceration to eyelids Pupils: Present: NELDA. Absent: constricted, dilated, fixed, irregular, unequal - ENT ENT exam: Present: normal exam, normal external ear exam - Neck Neck exam: Present: Exam limited by habitus, overall normal inspection. Absent : lymphadenopathy, meningismus, tenderness, thyromegaly - Respiratory Respiratory exam: Present: Exam limited by habitus, overall clear to auscultation bilaterally. Absent: accessory muscle use, chest wall tenderness - Cardiovascular Cardiovascular exam: Present: Exam limited by habitus, tones in general distant but overall regular rate and rhythm. Absent: carotid bruit, gallop, JVD, rubs - GI/Abdominal GI/Abdominal exam: Present: Exam limited by habitus, overall normal bowel sounds. Absent: distended, firm, guarding, hernia, mass, tenderness, rebound, soft - Extremities Exam Extremities exam: Present: normal inspection, normal capillary refill. Absent: calf tenderness, edema - Back Exam Back exam: Present: normal inspection. Absent: muscle spasm, vertebral tenderness - Neurological Exam Neurological exam: Present: alert, oriented X3, grossly intact without resting or intention tremor - Psychiatric Psychiatric exam: Present: normal affect, normal mood - Skin Skin exam: Present: normal color, warm, dry, intact. Absent: cyanosis, diaphoretic, rash, urticaria Result/EKG - Labs CBC & BMP: 01/25/17 01:17 01/25/17 01:17 Lab Results: I have reviewed the past 24 hour labs Labs: Laboratory Results - last 24 hr 01/25/17 01/25/17 01/26/17 15:58 20:06 07:55 POC Glucose 140 H 217 H 180 H
[2017-01-26] MEDS ORDERED: diphenhydrAMINE CAP 25 MG CAPSULE PO ONE (11:00)
[2017-01-26] MEDS ORDERED: DIAZEPAM 5 MG TABLET PO ONE (11:00)
[2017-01-26] MEDS: SODIUM CHLORIDE 0.45% 1,000 ML IV SCH ×2 (13:23→23:53)
--- NOTE | 2017-01-26 13:32 | History and Physical Update ---
Sedation H&P Update - History and Physical H&P was reviewed, the patient examined and there: are no changes in the patients condition since last H&P was completed. - Dictation Physical: refer to H&P completed by admitting physician - Physical Exam Mental Status: alert and oriented Heart: regular rate and rhythm Lung: clear to auscultation Abdomen: within normal limits Vitals: within normal limits - Sedation Plan for Sedation: minimal Patient Consent: Procedure disscussed with patient and patinet has consented., Risks and benefits were discussed with patient,including infection,, bleeding, injury to surrounding structures, seizure, temporary nerve, Patient understands and accepts potential risks/benefits and agrees to, proceed. (Left heart cath and possible PTCA or stent were discussed with the patient. The risk of the procedure include but are not limited to a small risk of injury to the vessel, abnormal heart rhythm, stroke, heart attack, need for emergent surgery, contrast reaction, restenosis, infection, or . The patient voices understanding, agrees with the plan, and desires to proceed with the heart catheterization.) ASA Class: II Airway Assessment: Class II: Soft palate, uvula, fauces visible
[2017-01-26] MEDS ORDERED: LIDOCAINE 1% 20 ML VIAL ONE (13:35)
[2017-01-26] MEDS ORDERED: MEPERIDINE 25 MG/1 ML VIAL ONE (13:35)
[2017-01-26] MEDS ORDERED: MIDAZOLAM 2 MG/2 ML VIAL ONE (13:35)
[2017-01-26] MEDS ORDERED: HEPARIN 5,000 UNIT/1 ML VIAL ONE (13:54)
--- NOTE | 2017-01-26 14:19 | Operative Note ---
Date of procedure: 01/26/17 Procedure Preformed: Left heart cath Coronary angiography Left ventriculography Angiogram of the right femoral artery Angio-Seal of the right femoral artery-successful Surgeon / Physician: Adonay Alan Post-op diagnosis: same (History of nonischemic cardiomyopathy, with worsening dyspnea on exertion. She underwent treadmill testing with inferior ST depression and increasing VPB's post exercise. There were some fixed defects. she is referred for evaluation for development of new ischemia.) Findings: Impression: No significant obstructive coronary disease-minimal luminal irregularities Moderate LV enlargement Moderate global left ventricular systolic dysfunction, LVEF 40-45% High LVEDP, 40 mmHg----the zero was checked with this measurement and it seem to be correct Angiogram of the right femoral artery Angio-Seal right femoral artery-successful Plan/recommendations: Based on this study, the patient does not appear to have fixed obstructive epicardial ischemic heart disease. However, with a high LVEDP , I suppose there is a possibility of some subendocardial ischemia causing some of these findings seen on the noninvasive testing. Whatever the case, optimal medical therapy will be continued. No coronary artery intervention is needed at this time. The patient will have risk factors optimized. Follow-up will be scheduled. Addenda: I saw the patient post-cath. the groin puncture site and distal pulse are stable. vital signs are stable and the patient will be observed closely overnight. Specimens: none sent Estimated blood loss: minimal Condition: stable Anesthesia: local, conscious sedation Disposition: floor
--- NOTE | 2017-01-26 14:24 | Cardiology Operative Report ---
Date of Procedure:: 01/26/17 Post-op diagnosis: same (History of nonischemic cardiomyopathy, with worsening dyspnea on exertion. She underwent treadmill testing with inferior ST depression and increasing VPB's post exercise. There were some fixed defects. she is referred for evaluation for development of new ischemia.) Procedure: Date of procedure: 01/26/17 Procedure Preformed: Left heart cath Coronary angiography Left ventriculography Angiogram of the right femoral artery Angio-Seal of the right femoral artery-successful Surgeon / Physician: Adonay Alan Post-op diagnosis: same (History of nonischemic cardiomyopathy, with worsening dyspnea on exertion. She underwent treadmill testing with inferior ST depression and increasing VPB's post exercise. There were some fixed defects. she is referred for evaluation for development of new ischemia.) procedure: The patient was prepped and draped in usual manner. Entered the right femoral artery via the Seldinger technique. I used a sheath and then used a JL4 and engaged left coronary. Multiple views were taken. I then exchanged for a JR4. Multiple views of the right coronary were taken. I then exchanged for an angled pigtail. I crossed the valve. Left ventricular end-diastolic pressures measured. Left ventriculography was done. Left ventricle pullback was done. The catheters were then removed from the patient. Angiogram of the right femoral artery was done either from the follow-through from the LV gram or a separate injection in the right femoral artery. Angio-Seal was done and it was successful. Please see the cath data sheets for the details of catheters used. Complications: None Hemodynamic data: LVEDP was 40 mmHg. Angiographic data: The left main coronary was large and had minimal luminal irregularities. The left anterior descending artery was large and had minimal luminal irregularities The left circumflex system was moderate to large and had minimal luminal irregularities The right coronary artery was large in size, dominant vessel with the PDA. It had minimal luminal irregularities. ALTMAN left ventriculography revealed reduced global/regional left ventricular systolic function. Overall ejection fraction was 40-45 %. There is no significant mitral regurgitation. Angiogram of the right femoral artery revealed the puncture site to be in a large vessel, above the bifurcation. It was suitable for Angio-Seal. Impression: No significant obstructive coronary disease-minimal luminal irregularities Moderate LV enlargement Moderate global left ventricular systolic dysfunction, LVEF 40-45% High LVEDP, 40 mmHg----the zero was checked with this measurement and it seem to be correct Angiogram of the right femoral artery Angio-Seal right femoral artery-successful Plan/recommendations: Based on this study, the patient does not appear to have fixed obstructive epicardial ischemic heart disease. However, with a high LVEDP , I suppose there is a possibility of some subendocardial ischemia causing some of these findings seen on the noninvasive testing. Whatever the case, optimal medical therapy will be continued. No coronary artery intervention is needed at this time. The patient will have risk factors optimized. Follow-up will be scheduled. Addenda: I saw the patient post-cath. the groin puncture site and distal pulse are stable. vital signs are stable and the patient will be observed closely overnight. Specimens: none sent Estimated blood loss: minimal Condition: stable Anesthesia: local, conscious sedation Disposition: floor Additional CC's: Elizabeth Mayfield Anesthesia: local, minimal conscious sedation Surgeon / Physician: Adonay Alan Fender Mechanic: other Estimated blood loss: minimal Specimens: none sent Condition: stable Disposition: floor
--- NOTE | 2017-01-26 16:41 | Discharge Summary ---
<Nishi Zamarripa - Last Filed: 01/26/17 16:36> Hospital Course - Hospital Course Hospital Course: I have personally interviewed and examined the patient, reviewed the chart and discussed medical decision-making with practitioner Dallin. I have read this note and agree with the documentation herein. STEWARD/STEWARDESS BANQUET: Dr. Bauer SUMMARY: Ms. Sullivan, 67 year old BF, PMHx hypertension, diabetes, hyperlipidemia, GAYLA with CPAP nightly, and has never been a smoker. Other history includes seizure disorder and reports recent diagnosis of asthma which she uses inhalers and as needed nebulizer treatments. Patient has severe pulmonary hypertension (PA pressure 55-60 mmHg) due to obstructive sleep apnea and diastolic dysfunction. She had an abnormal Cardiolite stress test in October 2015 demonstrating anterior ischemia, poor work capacity, and moderate global hypokinesis. Subsequent left and right heart catheterization in October 2015 with widely patent coronary arteries, EF 45%, severe pulmonary HTN. She has chronic dyspnea and is easily fatigued. Patient was last seen by primary information technology data analyst in clinic on September 28. Patient was admitted to [facility] with complaints of chest discomfort and exertional dyspnea. EKG and cardiac biomarkers negative for ischemic finding. UA revealed acute UTI. Patient was started on appropriate medications. She received 3 doses of IV Rocephin. Culture revealed no growth. Patient underwent nuclear cardiac stress test January 25, 2017. This was abnormal but difficult to interpret. Subsequently, patient underwent heart catheterization January 26, [address] Adonay Alan with the following impressions noted: IMPRESSION: No significant obstructive coronary disease-minimal luminal irregularities Moderate LV enlargement Moderate global left ventricular systolic dysfunction, LVEF 40-45% High LVEDP, 40 mmHg- Angiogram of the right femoral artery Angio-Seal right femoral artery-successful PLAN/RECOMMENDATIONS: Based on this study, the patient does not appear to have fixed obstructive epicardial ischemic heart disease. However, with a high LVEDP , I suppose there is a possibility of some subendocardial ischemia causing some of these findings seen on the noninvasive testing. Whatever the case, optimal medical therapy will be continued. No coronary artery intervention is needed at this time. The patient will have risk factors optimized. Post heart catheterization patient was transferred back to the telemetry unit in stable condition. Patient has done well and has been without complications. She is without complaint of chest pain, heaviness and tightness. Patient received Angio-Seal to right femoral artery. She has completed her appropriate amount of bedrest. Right groin is soft without bleeding, hematoma and bruit. Distal pulses 2+. Patient has ambulated around the room without difficulty. Right groin has remained stable post ambulation. Right groin precautions have been reviewed with the patient. She verbalizes understanding. At this point, it is felt that her diastolic dysfunction and mild cardiomyopathy is the cause of her severe dyspnea on exertion. Patient's blood pressure was suboptimally controlled this hospitalization. Her medications were adjusted accordingly. Patient has been instructed to hold her metformin at discharge. She may resume this medication Monday morning. She verbalizes understanding. Patient will be given a follow-up appoint with Dr. Bauer in 2 weeks with EKG. She also follow- up with her PCP. She is anxious for discharge home. Having felt that she has met maximal medical therapy, she will be discharged home in stable condition. Patient verbalized understanding of discharge instructions and discharge medications. - Time spent with patient Time with patient DS: Greater than 30 minutes Diagnosis - Discharge Diagnosis (1) Abnormal nuclear stress test Status: Acute (2) Chest pain Status: Resolved (3) UTI (urinary tract infection) Status: Acute (4) Hypertension Status: Chronic (5) Exertional dyspnea Status: Chronic (6) Obesity Status: Chronic (7) Obstructive sleep apnea Status: Chronic (8) Asthma Status: Chronic (9) Seizure disorder Status: Chronic (10) Depression Status: Chronic (11) Diabetes Status: Chronic (12) Dyslipidemia Status: Chronic Specialty Discharge - Follow Up or Referrals Follow up with: Christiano Bauer MD [Physician] - 2 Weeks (With EKG) Discharge Plan - Discharge Data Disposition: Disch To Home/Self Care Condition at Discharge: Stable Discharge Diet: heart healthy, low fat, low cholesterol, low salt diet Activity: no lifting (No lifting or squatting for 1 week), other (Post cath expectations) Hygiene: may shower, other (Post cath expectations) Weight Bearing at Discharge: other (Post cath expectations) Driving: other (Post cath expectations) Contact your physician if you experience:: fever over 101, Difficulty voiding, Redness or swelling, Nausea/Vomiting, Shortness of breath, Bleeding, pain uncontrolled by pain medications - Discharge Medications New Nebivolol HCl [Bystolic] 20 mg PO DAILY #30 tablet Valsartan [Diovan] 320 mg PO DAILY #30 tablet Aspirin EC Tab 81 mg PO DAILY #30 tablet Continue Fluticasone 50 Mcg Nasal [place] [Flonase Nasal [place]] 2 spray BOTH NARES QAM Beclomethasone 80 Mcg Inhaler [Qvar 80 Mcg] 80 mcg INH BID Amlodipine Besylate 10 mg PO QAM OXcarbazepine [Trileptal] 900 tablet PO QAM Citalopram Hydrobromide [Citalopram HBr] 20 mg PO QAM metFORMIN [Glucophage] 500 mg PO DAILY W/BREAKFAST Pravastatin Sodium 40 mg PO BEDTIME Furosemide Tab [Lasix Tab] 20 mg PO QAM hydrALAZINE TAB [Apresoline Tab] 100 mg PO TID Ipratropium/Albuterol Inhaler [Combivent Respimat Inhaler] 1 puff INH QID Insulin Detemir [Levemir] 45 unit SUBCUT BEDTIME traZODone [Desyrel] 50 mg PO BEDTIME PRN PRN Reason: Sleep Albuterol/Ipratropium Neb [Duoneb] 3 ml RESP TX RT Q4H PRN PRN Reason: Shortness Of Breath/Wheezing OXcarbazepine [Oxcarbazepine] 1,200 mg PO QPM Discontinued Benazepril HCl [Lotensin] 20 mg PO QAM Carvedilol [Carvedilol] 25 mg PO BID - Follow Up or Referral Follow Up: Christiano Bauer MD [Physician] - 2 Weeks (With EKG) - Forms/Instructions Additional Discharge Instructions: Please hold metformin. May resume this medication Monday morning Exam - Constitutional Vitals: Period Temp Pulse Resp BP Sys/Alvarado Pulse Ox Last 24 Hr 96.7 F-98.2 F 61-71 16-18 137-165/7-99 93-97 Exam: General: Appears well with no apparent distress. Pleasant and cooperative. Appears comfortable. HEENT: PERRL, normocephalic, atraumatic. Mucous membranes moist. No jaundice noted. Conjunctiva moist and clear, sclerae anicteric Neck: No JVD/HJR, no thyromegaly or lymphadenopathy noted. No carotid bruit appreciated Cardiac: Regular rate and rhythm. No murmur rub or gallop. Lungs: Clear to auscultation without accessory muscle use to assist the respiratory pattern. Not requiring oxygen. Abdomen: Soft, bowel sounds normoactive. Nontender and nondistended. No abdominal bruit or thrill noted. No masses noted. Extremities: No clubbing, cyanosis noted. No edema noted. Upper extremity pulses 2+. Lower extremity pulses 2+. Capillary refill less than 3 seconds. Right groin soft without bleeding, hematoma and bruit. Distal pulses 2+. Skin: No unusual lesions or rashes. No skin breakdown appreciated. Neuro: Awake, alert and oriented 3. Moves all extremities well without hemiparesis or paralysis. No essential tremor is appreciated. Discharge Results Procedures and tests throughout hospitalization: Pending Orders 01/26/17 10:04 CL heart Routine Labs on day of discharge: Labs from last 24 hours 01/26/17 01/26/17 01/26/17 15:42 13:22 07:55 POC Glucose 130 H 144 H 180 H 01/25/17 20:06 POC Glucose 217 H - Imaging and Cardiology Cardiology Procedure: report reviewed by me Procedure: Chest x-ray: report reviewed by me DS: Provider Date of admission: 01/24/17 20:27 Primary care physician: Royce Brewer MD Attending physician on admission: Elizabeth Mayfield, Consults: 01/24/17 22:24 Consult to Pastoral Services [CONS] Routine Comment: Pastoral Screen: Declines Visit Pastoral Screen Source of Request: Patient Discharging clinician: Nishi Zamarripa NP Expected date of discharge: 01/26/17 <Elizabeth Mayfield - Last Filed: 01/26/17 18:58> Diagnosis - Discharge Diagnosis (1) Chest pain Status: Resolved (2) Exertional dyspnea Status: Chronic (3) UTI (urinary tract infection) Status: Acute (4) Hypercholesterolemia Status: Chronic (5) Obesity Status: Chronic (6) Obstructive sleep apnea Status: Chronic (7) Secondary pulmonary hypertension Status: Chronic (8) Seizure disorder Status: Chronic (9) Depression Status: Chronic (10) Diabetes Status: Chronic
[2017-01-26] MEDS: VALSARTAN 160 MG TABLET PO SCH (19:34)
[2017-01-26] MEDS: cefTRIAXone 1,000 MG in SODIUM CHLORIDE 0.9% 100 ML IV SCH (21:09)
[2017-01-26] MEDS: PRAVASTATIN 40 MG TABLET PO SCH (21:09)
[2017-01-27] MEDS: NITROGLYCERIN 2% OINT 1 INCH/GM PACK TOP SCH ×2 (01:51→05:51)
[2017-01-27 07:52] VITALS: BP 163/80
[2017-01-27] MEDS: INSULIN REGULAR 100 UNIT/ML SUBCUT SCH (08:13)
[2017-01-27] MEDS: CITALOPRAM 20 MG TABLET PO SCH (08:13)
[2017-01-27] MEDS: ASPIRIN EC 325 MG TABLET PO SCH (08:13)
[2017-01-27] MEDS: amLODIPine 10 MG TABLET PO SCH (08:14)
[2017-01-27] MEDS: BECLOMETHASONE 80 MCG/PUFF INHALER 8.7 GM INH SCH (08:14)
[2017-01-27] MEDS: PANTOPRAZOLE 40 MG TABLET PO SCH (08:14)
[2017-01-27] MEDS: FUROSEMIDE 20 MG TABLET PO SCH (08:14)
[2017-01-27] MEDS: VALSARTAN 160 MG TABLET PO SCH (08:14)
[2017-01-27] MEDS: OXcarbazepine 300 MG TABLET PO SCH (08:17)
[2017-01-27] MEDS ORDERED: NEBIVOLOL 10 MG TABLET PO SCH (09:00)
--- NOTE | 2017-01-31 14:25 | Physician Query Form ---
CLICK EDIT DOCUMENT TO SELECT QUERY ANSWER --> OK --> SIGN Suma Gunter RN Clinical Unified Communications Engineer W) [phone] (f) [phone] [email or web address] PROVIDERS: Make your selection(s) from the choices in EACH section by typing an "x" and enter comments in the comment section. Please use your independent medical judgment in providing your response. This request does not imply that any particular answer is desired or expected. CLINICAL INDICATORS: (Providers should not edit this section) Based on documentation of " Chest x-ray with cardiomegaly, mild CHF", [id number]. Heart catheterization report states "Moderate global left ventricular systolic dysfunction, LVEF 40-45%". Pt. treated with IV Lasix. Please provide further specificity regarding CHF. ACUITY: ( ) Acute ( ) Chronic (x ) Acute on Chronic ( ) Clinically unable to determine TYPE: (x ) Systolic (HFrEF - heart failure with reduced systolic function/EF) (x ) Diastolic (HFpEF - heart failure with preserved systolic function/EF) ( ) Combined Systolic/Diastolic ( ) Other, please specify: ( ) Clinically unable to determine ( x) Past Medical History of Systolic CHF ( x) Past Medical History of Diastolic CHF ( ) Clinically unable to determine COMMENTS: PLEASE ALSO DOCUMENT RESPONSE IN PROGRESS NOTES AND/OR DISCHARGE SUMMARY Use of terms such as suspected, likely, or probable (associated with a specific diagnosis that is being evaluated, monitored, or treated as if it exists) are acceptable and can be restated in the discharge summary if not ruled out. MTDD
== END 2017-01-27 11:34 | disposition home or self-care (01) | DRG 286 ==
LOC: N.ED 18:06 → N.EDINP 20:52 → N.TELES 21:37
PROVIDERS: ADMIT Internal Medicine Cardiovascular Disease; ATTEND Internal Medicine Cardiovascular Disease
PROC: CLCCHCL (ICD-10-PCS; 2017-01-26 14:45)

== ENCOUNTER 2017-03-17 21:37 | Inpatient (IN) ==
[2017-03-17] MEDS ORDERED: FUROSEMIDE 100 MG/10 ML VIAL IV STA (22:17)
[2017-03-17] MEDS ORDERED: hydrALAZINE 20 MG/1 ML VIAL IV STA (22:19)
[2017-03-17] MEDS ORDERED: hydrALAZINE 20 MG/1 ML VIAL ONE (22:23)
[2017-03-17] MEDS ORDERED: FUROSEMIDE 40 MG/4 ML VIAL ONE (22:23)
[2017-03-17 22:42] LABS: Basophils % 0.3 % (0.0-0.8); Hemoglobin 11.7 GM/DL (12.0-16.0); Immature Granulocytes % 0.3 %; Immature Granulocytes Absolute 0.02 #; Lymphocytes # 2.3 10*3/uL (1.4-4.0); Lymphocytes % 34.2 % (21.3-54.2); Mean Corpuscular HGB Conc 34.4 GM/DL (32-36); Mean Corpuscular Hemoglobin 30 PG (27-34); Mean Corpuscular Volume 88.3 FL (87-102); Mean Platelet Volume 10.3 FL (9.6-12.0); Monocytes # 0.6 10*3/uL (0.11-0.8); Monocytes % 8.1 % (1.7-12.7); Neutrophils # 3.9 10*3/uL (1.4-7.4); Neutrophils % 57.1 % (38.7-73.9); Platelet Count 215 T/CUMM (130-400); Red Blood Count 3.85 MC/CUMM (3.8-5.5); Red Cell Distribution Width 13.1 % (9.3-17.3); White Blood Count 6.8 T/CUMM (4-12)
[2017-03-17] MEDS ORDERED: FUROSEMIDE 40 MG/4 ML VIAL IV STA (22:48)
[2017-03-17 23:04] LABS: Albumin 3.5 G/DL (3.4-5.0); Bilirubin,Total 0.5 MG/DL (0.2-1.0); Calcium 8.4 MG/DL (8.5-10.1); Osmolality,Calculated 282.5 MOS/KG (273-304); Potassium 3.6 MMOL/L (3.5-5.1); Total Protein 6.8 G/DL (6.4-8.3); Troponin I Only 0.019 NG/ML (0.00-0.045)
[2017-03-18] MEDS ORDERED: hydrALAZINE 20 MG/1 ML VIAL IV STA (01:35)
[2017-03-18] MEDS ORDERED: hydrALAZINE 20 MG/1 ML VIAL ONE (01:36)
[2017-03-18 02:14] LABS: Apearance,Urine CLEAR (Clear); Bacteria,Urine Occasional /HPF (Few); Bilirubin,Urine Negative (Negative); Blood, Urine Small mg/dL (Negative); Glucose,Urine (UA) Negative (Negative); Ketones,Urine Negative (Negative); Mucus,Urine Occasional /LPF (Occasional); Nitrite,Urine Negative (Negative); Protein,Urine Negative; RBC,Urine 1 /HPF (0-4); Squamous Epithelial Cell,Urine Occasional /HPF (0-10); Urine Color Yellow (Yellow); Urine Urobilinogen < 2.0 EU/DL (0.2-1.0); WBC,Urine 1 /HPF (0-6)
[2017-03-18] MEDS ORDERED: traZODone 50 MG TABLET PO PRN (08:44)
[2017-03-18] MEDS ORDERED: ALBUTEROL/IPRATROPIUM 3 ML NEB RESP TX PRN (08:44)
[2017-03-18] MEDS ORDERED: DEXTROSE 50% 25 GM/50 ML VIAL IV PRN (08:46)
[2017-03-18] MEDS ORDERED: GLUCAGON 1 MG VIAL IM PRN (08:46)
[2017-03-18] MEDS ORDERED: hydrALAZINE 20 MG/1 ML VIAL IV PRN (08:47)
[2017-03-18] MEDS: amLODIPine 10 MG TABLET PO SCH (09:18)
[2017-03-18] MEDS: VALSARTAN 160 MG TABLET PO SCH (09:20)
[2017-03-18] MEDS: NEBIVOLOL 10 MG TABLET PO SCH (09:20)
[2017-03-18] MEDS: ASPIRIN EC 81 MG TABLET PO SCH (09:20)
[2017-03-18] MEDS: POTASSIUM CHLORIDE 20 MEQ TABLET PO SCH ×2 (09:20→21:30)
[2017-03-18] MEDS: CITALOPRAM 20 MG TABLET PO SCH (09:20)
[2017-03-18] MEDS: MAGNESIUM OXIDE 400 MG TABLET PO SCH ×2 (09:20→21:31)
[2017-03-18] MEDS: OXcarbazepine 300 MG TABLET PO SCH ×2 (10:05→21:30)
[2017-03-18] MEDS: BECLOMETHASONE 80 MCG/PUFF INHALER 8.7 GM INH SCH (10:45)
[2017-03-18] MEDS: FLUTICASONE 50 MCG NASAL SPRAY 16 GM BOTTLE BOTH NARES SCH (10:45)
[2017-03-18] MEDS: ALBUTEROL/IPRATROPIUM 3 ML NEB RESP TX SCH ×3 (10:57→19:34)
[2017-03-18] MEDS: FUROSEMIDE 40 MG/4 ML VIAL IV SCH ×2 (13:19→15:30)
[2017-03-18] MEDS: INSULIN REGULAR 100 UNIT/ML SUBCUT SCH ×3 (13:24→21:32)
[2017-03-18] MEDS ORDERED: FUROSEMIDE 40 MG/4 ML VIAL IV SCH (16:00)
[2017-03-18] MEDS: PRAVASTATIN 40 MG TABLET PO SCH (21:31)
[2017-03-18] MEDS: INSULIN GLARGINE 100 UNIT/ML SUBCUT SCH (21:31)
[2017-03-19] MEDS: BECLOMETHASONE 80 MCG/PUFF INHALER 8.7 GM INH SCH ×3 (00:45→21:57)
[2017-03-19 05:49] LABS: Basophils % 0.2 % (0.0-0.8); Hematocrit 35.5 VOL% (35.7-47.0); Hemoglobin 11.8 GM/DL (12.0-16.0); Immature Granulocytes % 0.4 %; Immature Granulocytes Absolute 0.02 #; Lymphocytes # 1.8 10*3/uL (1.4-4.0); Lymphocytes % 31.8 % (21.3-54.2); Mean Corpuscular HGB Conc 33.2 GM/DL (32-36); Mean Corpuscular Hemoglobin 30 PG (27-34); Mean Corpuscular Volume 88.8 FL (87-102); Mean Platelet Volume 11.3 FL (9.6-12.0); Monocytes # 0.8 10*3/uL (0.11-0.8); Monocytes % 13.7 % (1.7-12.7); Neutrophils % 53.9 % (38.7-73.9); Platelet Count 226 T/CUMM (130-400); Red Cell Distribution Width 13.2 % (9.3-17.3); White Blood Count 5.5 T/CUMM (4-12)
[2017-03-19 06:19] LABS: Calcium 8.7 MG/DL (8.5-10.1); Osmolality,Calculated 281.4 MOS/KG (273-304); Potassium 3.8 MMOL/L (3.5-5.1)
[2017-03-19] MEDS: ALBUTEROL/IPRATROPIUM 3 ML NEB RESP TX SCH ×4 (07:22→19:05)
[2017-03-19] MEDS: VALSARTAN 160 MG TABLET PO SCH (08:49)
[2017-03-19] MEDS: POTASSIUM CHLORIDE 20 MEQ TABLET PO SCH ×2 (08:49→21:56)
[2017-03-19] MEDS: OXcarbazepine 300 MG TABLET PO SCH ×2 (08:50→18:00)
[2017-03-19] MEDS: MAGNESIUM OXIDE 400 MG TABLET PO SCH ×2 (08:50→21:57)
[2017-03-19] MEDS: amLODIPine 10 MG TABLET PO SCH (08:50)
[2017-03-19] MEDS: ASPIRIN EC 81 MG TABLET PO SCH (08:50)
[2017-03-19] MEDS: metFORMIN 500 MG TABLET PO SCH (08:50)
[2017-03-19] MEDS: CITALOPRAM 20 MG TABLET PO SCH (08:50)
[2017-03-19] MEDS: NEBIVOLOL 10 MG TABLET PO SCH (08:50)
[2017-03-19] MEDS: INSULIN REGULAR 100 UNIT/ML SUBCUT SCH ×4 (08:51→21:55)
[2017-03-19] MEDS: FUROSEMIDE 40 MG/4 ML VIAL IV SCH ×2 (09:00→15:48)
[2017-03-19] MEDS: FLUTICASONE 50 MCG NASAL SPRAY 16 GM BOTTLE BOTH NARES SCH (09:22)
[2017-03-19] MEDS: CHLORTHALIDONE 25 MG TABLET PO SCH (10:12)
[2017-03-19] MEDS ORDERED: TERAZOSIN 5 MG CAPSULE PO SCH (21:00)
[2017-03-19] MEDS: INSULIN GLARGINE 100 UNIT/ML SUBCUT SCH (21:56)
[2017-03-19] MEDS: PRAVASTATIN 40 MG TABLET PO SCH (21:56)
[2017-03-20] MEDS: ALBUTEROL/IPRATROPIUM 3 ML NEB RESP TX SCH ×3 (07:40→14:54)
[2017-03-20 08:58] LABS: Basophils % 0.2 % (0.0-0.8); Hemoglobin 13.1 GM/DL (12.0-16.0); Immature Granulocytes % 0.4 %; Immature Granulocytes Absolute 0.02 #; Lymphocytes # 1.6 10*3/uL (1.4-4.0); Lymphocytes % 29.7 % (21.3-54.2); Mean Corpuscular HGB Conc 33.6 GM/DL (32-36); Mean Corpuscular Hemoglobin 30 PG (27-34); Mean Corpuscular Volume 88.8 FL (87-102); Mean Platelet Volume 10.5 FL (9.6-12.0); Monocytes # 0.7 10*3/uL (0.11-0.8); Monocytes % 12.1 % (1.7-12.7); Neutrophils # 3.1 10*3/uL (1.4-7.4); Neutrophils % 57.6 % (38.7-73.9); Platelet Count 243 T/CUMM (130-400); Red Blood Count 4.39 MC/CUMM (3.8-5.5); Red Cell Distribution Width 13.4 % (9.3-17.3); White Blood Count 5.5 T/CUMM (4-12)
[2017-03-20 09:35] LABS: Calcium 8.7 MG/DL (8.5-10.1); Magnesium 2.2 MG/DL (1.8-2.4); Osmolality,Calculated 285.5 MOS/KG (273-304); Potassium 3.8 MMOL/L (3.5-5.1)
[2017-03-20] MEDS: INSULIN REGULAR 100 UNIT/ML SUBCUT SCH ×2 (09:38→12:31)
[2017-03-20] MEDS: OXcarbazepine 300 MG TABLET PO SCH (10:18)
[2017-03-20] MEDS: POTASSIUM CHLORIDE 20 MEQ TABLET PO SCH (10:18)
[2017-03-20] MEDS: amLODIPine 10 MG TABLET PO SCH (10:18)
[2017-03-20] MEDS: CITALOPRAM 20 MG TABLET PO SCH (10:19)
[2017-03-20] MEDS: NEBIVOLOL 10 MG TABLET PO SCH (10:19)
[2017-03-20] MEDS: metFORMIN 500 MG TABLET PO SCH (10:19)
[2017-03-20] MEDS: CHLORTHALIDONE 25 MG TABLET PO SCH (10:19)
[2017-03-20] MEDS: VALSARTAN 160 MG TABLET PO SCH (10:19)
[2017-03-20] MEDS: ASPIRIN EC 81 MG TABLET PO SCH (10:19)
[2017-03-20] MEDS: MAGNESIUM OXIDE 400 MG TABLET PO SCH (10:19)
[2017-03-20] MEDS: BECLOMETHASONE 80 MCG/PUFF INHALER 8.7 GM INH SCH (10:20)
[2017-03-20] MEDS: FLUTICASONE 50 MCG NASAL SPRAY 16 GM BOTTLE BOTH NARES SCH (10:20)
[2017-03-20] MEDS: FUROSEMIDE 40 MG/4 ML VIAL IV SCH (10:21)
[2017-03-20 16:27] VITALS: BP 140/67
== END 2017-03-20 16:16 | disposition home or self-care (01) | DRG 293 ==
LOC: N.ED 21:37 → N.EDINP 03-18 00:10 → N.TELES 03-18 01:00
PROVIDERS: ADMIT Internal Medicine Interventional Cardiology; ATTEND Internal Medicine Interventional Cardiology

== ENCOUNTER 2017-12-10 17:44 | Inpatient (IN) ==
[2017-12-10 18:50] LABS: Basophils # 0.1 10*3/uL (0.0-0.2); Basophils % 0.8 % (0.0-0.8); Hematocrit 32.1 VOL% (35.7-47.0); Hemoglobin 10.3 GM/DL (12.0-16.0); Immature Granulocytes % 0.3 %; Immature Granulocytes Absolute 0.02 #; Lymphocytes # 2.2 10*3/uL (1.4-4.0); Lymphocytes % 33.7 % (21.3-54.2); Mean Corpuscular HGB Conc 32.1 GM/DL (32-36); Mean Corpuscular Hemoglobin 30 PG (27-34); Mean Platelet Volume 10.1 FL (9.6-12.0); Monocytes % 15.1 % (1.7-12.7); Neutrophils # 3.2 10*3/uL (1.4-7.4); Neutrophils % 50.1 % (38.7-73.9); Platelet Count 279 T/CUMM (130-400); Red Blood Count 3.45 MC/CUMM (3.8-5.5); Red Cell Distribution Width 12.7 % (9.3-17.3); White Blood Count 6.4 T/CUMM (4-12)
[2017-12-10 19:00] LABS: PT Patient Result 10.1 SECS; Partial Thromboplastin Time 22.3 SECS (0-40)
[2017-12-10 19:10] LABS: Alanine Aminotransferase 26 U/L (13-56); Albumin 3.7 G/DL (3.4-5.0); Alkaline Phosphatase 153 U/L (45-117); Aspartate Amino Transferase 26 U/L (0-37); Bilirubin,Total < 0.39 MG/DL (0.2-1.0); Blood Urea Nitrogen 41 MG/DL (7-18); Calcium 8.4 MG/DL (8.5-10.1); Glucose 100 MG/DL (74-106); Osmolality,Calculated 290.3 MOS/KG (273-304); Potassium 4.4 MMOL/L (3.5-5.1); Sodium 141 MMOL/L (136-145); Total Protein 7.3 G/DL (6.4-8.3)
[2017-12-10 19:15] LABS: Apearance,Urine CLEAR (Clear); Bilirubin,Urine Negative (Negative); Blood, Urine Negative (Negative); Glucose,Urine (UA) Negative (Negative); Hyaline Casts,Urine 7 /LPF (0-3); Ketones,Urine Negative (Negative); Nitrite,Urine Negative (Negative); Protein,Urine Negative; RBC,Urine <1 /HPF (0-4); Squamous Epithelial Cell,Urine Occasional /HPF (0-10); Urine Color Straw (Yellow); Urine Specific Gravity 1.009 (1.001-1.035); Urine Urobilinogen < 2.0 EU/DL (0.2-1.0); WBC,Urine 1 /HPF (0-6)
[2017-12-10 22:44] LABS: Thyroid Stimulating Hormone 1.06 uIU/ml (0.358-3.74)
[2017-12-10 22:56] LABS: Folate 7.3 NG/ML (5.4-24.0)
[2017-12-11 05:51] LABS: Basophils % 0.7 % (0.0-0.8); Hematocrit 33.3 VOL% (35.7-47.0); Immature Granulocytes % 0.4 %; Immature Granulocytes Absolute 0.02 #; Lymphocytes # 2.2 10*3/uL (1.4-4.0); Lymphocytes % 40.3 % (21.3-54.2); Mean Corpuscular Hemoglobin 30 PG (27-34); Mean Platelet Volume 9.6 FL (9.6-12.0); Monocytes # 0.8 10*3/uL (0.11-0.8); Monocytes % 15.3 % (1.7-12.7); Neutrophils # 2.4 10*3/uL (1.4-7.4); Neutrophils % 43.3 % (38.7-73.9); Platelet Count 276 T/CUMM (130-400); Red Cell Distribution Width 12.5 % (9.3-17.3); White Blood Count 5.4 T/CUMM (4-12)
[2017-12-11 06:12] LABS: Albumin 3.3 G/DL (3.4-5.0); Bilirubin,Total 0.4 MG/DL (0.2-1.0); Calcium 8.5 MG/DL (8.5-10.1); Osmolality,Calculated 287.4 MOS/KG (273-304); Potassium 3.6 MMOL/L (3.5-5.1); Risk Ratio 3.17; Total Protein 7.3 G/DL (6.4-8.3); VLDL CHOLESTEROL 38.2 MG/DL
[2017-12-12 05:10] LABS: Calcium 8.5 MG/DL (8.5-10.1); Potassium 3.6 MMOL/L (3.5-5.1)
[2017-12-12 05:54] LABS: Basophils # 0.1 10*3/uL (0.0-0.2); Eosinophils % 0.2 % (0.00-10.9); Hematocrit 35.3 VOL% (35.7-47.0); Hemoglobin 11.6 GM/DL (12.0-16.0); Immature Granulocytes % 0.8 %; Immature Granulocytes Absolute 0.04 #; Lymphocytes # 1.7 10*3/uL (1.4-4.0); Lymphocytes % 32.9 % (21.3-54.2); Mean Corpuscular HGB Conc 32.9 GM/DL (32-36); Mean Corpuscular Hemoglobin 30 PG (27-34); Mean Corpuscular Volume 91.5 FL (87-102); Mean Platelet Volume 10.8 FL (9.6-12.0); Monocytes # 0.7 10*3/uL (0.11-0.8); Monocytes % 13.9 % (1.7-12.7); Neutrophils # 2.7 10*3/uL (1.4-7.4); Neutrophils % 51.2 % (38.7-73.9); Platelet Count 143 T/CUMM (130-400); Red Blood Count 3.86 MC/CUMM (3.8-5.5); Red Cell Distribution Width 12.2 % (9.3-17.3); White Blood Count 5.3 T/CUMM (4-12)
[2017-12-12 06:50] LABS: Hypochromasia 1+; Lymphocytes 29 % (20-55); Microcytosis Slight; Segmented Neutrophils 62 % (50-85); Total Cells Counted 100
[2017-12-13 06:43] LABS: Basophils % 0.6 % (0.0-0.8); Hematocrit 33.8 VOL% (35.7-47.0); Hemoglobin 11.2 GM/DL (12.0-16.0); Immature Granulocytes % 0.2 %; Immature Granulocytes Absolute 0.01 #; Lymphocytes # 1.5 10*3/uL (1.4-4.0); Lymphocytes % 32.6 % (21.3-54.2); Mean Corpuscular HGB Conc 33.1 GM/DL (32-36); Mean Corpuscular Hemoglobin 30 PG (27-34); Mean Corpuscular Volume 88.9 FL (87-102); Mean Platelet Volume 10.7 FL (9.6-12.0); Monocytes # 0.7 10*3/uL (0.11-0.8); Monocytes % 14.8 % (1.7-12.7); Neutrophils # 2.4 10*3/uL (1.4-7.4); Neutrophils % 51.8 % (38.7-73.9); Platelet Count 270 T/CUMM (130-400); White Blood Count 4.7 T/CUMM (4-12)
[2017-12-13 07:04] LABS: Calcium 8.4 MG/DL (8.5-10.1); Osmolality,Calculated 276.8 MOS/KG (273-304); Potassium 3.7 MMOL/L (3.5-5.1)
[2017-12-13 11:34] VITALS: BP 111/54
== END 2017-12-13 16:03 | disposition home or self-care (01) | DRG 149 ==
LOC: N.ED 17:44 → N.EDINP 20:27 → N.TELEN 21:47
PROVIDERS: ADMIT Internal Medicine; ATTEND Internal Medicine

== ENCOUNTER 2019-01-16 19:06 | Inpatient (IN) ==
[2019-01-16] MEDS ORDERED: SODIUM CHLORIDE 0.9% 1,000 ML IV STA (20:23)
[2019-01-16 20:45] LABS: Basophils # 0.1 10*3/uL (0.0-0.2); Basophils % 0.8 % (0.0-0.8); Hematocrit 35.7 VOL% (35.7-47.0); Hemoglobin 11.7 GM/DL (12.0-16.0); Immature Granulocytes % 0.4 %; Immature Granulocytes Absolute 0.03 #; Lymphocytes # 2.4 10*3/uL (1.4-4.0); Lymphocytes % 32.3 % (21.3-54.2); Mean Corpuscular HGB Conc 32.8 GM/DL (32-36); Mean Platelet Volume 10.8 FL (9.6-12.0); Monocytes % 10.7 % (1.7-12.7); Neutrophils % 55.8 % (38.7-73.9); Platelet Count 245 T/CUMM (130-400); Red Blood Count 3.88 MC/CUMM (3.8-5.5); Red Cell Distribution Width 12.4 % (9.3-17.3); White Blood Count 7.5 T/CUMM (4-12)
[2019-01-16 21:08] LABS: Apearance,Urine CLEAR (Clear); Bacteria,Urine Occasional /HPF (Few); Bilirubin,Urine Negative (Negative); Blood, Urine Negative (Negative); Glucose,Urine (UA) 50 mg/dL (Negative); Ketones,Urine Negative (Negative); Mucus,Urine Occasional /LPF (Occasional); Nitrite,Urine Negative (Negative); Protein,Urine Negative; RBC,Urine 1 /HPF (0-4); Squamous Epithelial Cell,Urine Occasional /HPF (0-10); Urine Color Straw (Yellow); Urine Specific Gravity 1.013 (1.001-1.035); Urine Urobilinogen < 2.0 EU/DL (0.2-1.0); WBC,Urine 3 /HPF (0-6)
[2019-01-16 21:22] LABS: Alanine Aminotransferase 27 U/L (13-56); Albumin 3.9 G/DL (3.4-5.0); Alkaline Phosphatase 242 U/L (45-117); Aspartate Amino Transferase 24 U/L (0-37); Bilirubin,Total < 0.39 MG/DL (0.2-1.0); Blood Urea Nitrogen 53 MG/DL (7-18); Glucose 286 MG/DL (74-106); Osmolality,Calculated 298.7 MOS/KG (273-304); Total Protein 8.3 G/DL (6.4-8.3)
[2019-01-17] MEDS ORDERED: DEXTROSE 50% 25 GM/50 ML VIAL IV PRN (00:22)
[2019-01-17] MEDS ORDERED: ONDANSETRON 4 MG/2 ML VIAL IV PRN (00:22)
[2019-01-17] MEDS ORDERED: ACETAMINOPHEN 325 MG TABLET PO PRN (00:22)
[2019-01-17] MEDS ORDERED: DOCUSATE SODIUM 100 MG CAPSULE PO PRN (00:22)
[2019-01-17] MEDS ORDERED: GLUCAGON 1 MG VIAL IM PRN (00:22)
[2019-01-17] MEDS: SODIUM CHLORIDE 0.9% 1,000 ML IV SCH ×2 (00:50→16:17)
[2019-01-17 06:00] LABS: Basophils % 0.7 % (0.0-0.8); Immature Granulocytes % 0.5 %; Immature Granulocytes Absolute 0.03 #; Lymphocytes # 2.2 10*3/uL (1.4-4.0); Lymphocytes % 38.5 % (21.3-54.2); Mean Corpuscular HGB Conc 32.4 GM/DL (32-36); Mean Corpuscular Volume 92.1 FL (87-102); Mean Platelet Volume 11.1 FL (9.6-12.0); Monocytes % 12.5 % (1.7-12.7); Neutrophils % 47.8 % (38.7-73.9); Platelet Count 225 T/CUMM (130-400); Red Blood Count 3.69 MC/CUMM (3.8-5.5); Red Cell Distribution Width 12.5 % (9.3-17.3); White Blood Count 5.8 T/CUMM (4-12)
[2019-01-17 06:42] LABS: Calcium 8.6 MG/DL (8.5-10.1); Osmolality,Calculated 299.3 MOS/KG (273-304)
[2019-01-17 06:48] LABS: Thyroid Stimulating Hormone 0.645 uIU/ml (0.358-3.74)
[2019-01-17 08:01] LABS: Folate 10.2 NG/ML (5.4-24.0)
[2019-01-17] MEDS: ENOXAPARIN 40 MG/0.4 ML SYRINGE SUBCUT SCH (08:44)
[2019-01-17] MEDS: INSULIN REGULAR 100 UNIT/ML SUBCUT SCH ×4 (08:44→21:07)
[2019-01-17] MEDS ORDERED: ALBUTEROL/IPRATROPIUM 3 ML NEB RESP TX PRN (14:36)
[2019-01-17] MEDS ORDERED: POLYETHYLENE GLYCOL POWDER 17 GM PACK PO PRN (14:36)
[2019-01-17] MEDS: SIMVASTATIN 20 MG TABLET PO SCH (21:07)
[2019-01-17] MEDS: OXcarbazepine 300 MG TABLET PO SCH (21:07)
[2019-01-17] MEDS: POTASSIUM CHLORIDE 20 MEQ TABLET PO SCH (21:07)
[2019-01-17] MEDS: INSULIN GLARGINE 100 UNIT/ML SUBCUT SCH (21:08)
[2019-01-18 05:21] LABS: Basophils # 0.1 10*3/uL (0.0-0.2); Basophils % 0.8 % (0.0-0.8); Hematocrit 32.6 VOL% (35.7-47.0); Hemoglobin 10.5 GM/DL (12.0-16.0); Immature Granulocytes % 0.3 %; Immature Granulocytes Absolute 0.02 #; Lymphocytes # 2.8 10*3/uL (1.4-4.0); Lymphocytes % 43.5 % (21.3-54.2); Mean Corpuscular HGB Conc 32.2 GM/DL (32-36); Mean Corpuscular Volume 93.1 FL (87-102); Mean Platelet Volume 10.9 FL (9.6-12.0); Neutrophils % 42.4 % (38.7-73.9); Platelet Count 230 T/CUMM (130-400); Red Cell Distribution Width 12.4 % (9.3-17.3); White Blood Count 6.5 T/CUMM (4-12)
[2019-01-18 05:58] LABS: Calcium 8.5 MG/DL (8.5-10.1); Osmolality,Calculated 290.8 MOS/KG (273-304); Risk Ratio 3.65; VLDL CHOLESTEROL 32.2 MG/DL
[2019-01-18] MEDS: SODIUM CHLORIDE 0.9% 1,000 ML IV SCH (06:05)
[2019-01-18] MEDS: INSULIN REGULAR 100 UNIT/ML SUBCUT SCH ×4 (08:30→21:08)
[2019-01-18] MEDS ORDERED: Fluticasone Furoate-Vilanterol [Breo Ellipta] 1 PUFF INH SCH (09:00)
[2019-01-18] MEDS ORDERED: amLODIPine 10 MG TABLET PO SCH (09:00)
[2019-01-18] MEDS: OXcarbazepine 300 MG TABLET PO SCH ×2 (09:35→21:08)
[2019-01-18] MEDS: POTASSIUM CHLORIDE 20 MEQ TABLET PO SCH ×2 (09:35→21:14)
[2019-01-18] MEDS: amLODIPine 10 MG TABLET PO SCH (09:36)
[2019-01-18] MEDS: CITALOPRAM 20 MG TABLET PO SCH (09:36)
[2019-01-18] MEDS: ENOXAPARIN 40 MG/0.4 ML SYRINGE SUBCUT SCH (09:36)
[2019-01-18] MEDS: FLUTICASONE 50 MCG NASAL SPRAY 16 GM BOTTLE BOTH NARES SCH (09:38)
[2019-01-18] MEDS: ASPIRIN EC 81 MG TABLET PO SCH (09:38)
[2019-01-18] MEDS: CHLORTHALIDONE 25 MG TABLET PO SCH (14:00)
[2019-01-18] MEDS: INSULIN GLARGINE 100 UNIT/ML SUBCUT SCH (21:08)
[2019-01-18] MEDS: SIMVASTATIN 20 MG TABLET PO SCH (21:08)
[2019-01-19 05:43] LABS: Basophils % 0.5 % (0.0-0.8); Hematocrit 34.1 VOL% (35.7-47.0); Hemoglobin 11.1 GM/DL (12.0-16.0); Immature Granulocytes % 0.3 %; Immature Granulocytes Absolute 0.02 #; Lymphocytes # 1.8 10*3/uL (1.4-4.0); Lymphocytes % 28.6 % (21.3-54.2); Mean Corpuscular HGB Conc 32.6 GM/DL (32-36); Mean Corpuscular Volume 91.7 FL (87-102); Mean Platelet Volume 11.1 FL (9.6-12.0); Monocytes % 13.7 % (1.7-12.7); Neutrophils % 56.9 % (38.7-73.9); Platelet Count 232 T/CUMM (130-400); Red Blood Count 3.72 MC/CUMM (3.8-5.5); Red Cell Distribution Width 12.4 % (9.3-17.3); White Blood Count 6.4 T/CUMM (4-12)
[2019-01-19 06:06] LABS: Calcium 9.1 MG/DL (8.5-10.1); Osmolality,Calculated 284.1 MOS/KG (273-304)
[2019-01-19 08:13] VITALS: BP 184/75
[2019-01-19] MEDS: ENOXAPARIN 40 MG/0.4 ML SYRINGE SUBCUT SCH (08:29)
[2019-01-19] MEDS: ASPIRIN EC 81 MG TABLET PO SCH (08:29)
[2019-01-19] MEDS: CITALOPRAM 20 MG TABLET PO SCH (08:29)
[2019-01-19] MEDS: POTASSIUM CHLORIDE 20 MEQ TABLET PO SCH (08:29)
[2019-01-19] MEDS: OXcarbazepine 300 MG TABLET PO SCH (08:29)
[2019-01-19] MEDS: CHLORTHALIDONE 25 MG TABLET PO SCH (08:30)
[2019-01-19] MEDS: INSULIN REGULAR 100 UNIT/ML SUBCUT SCH (08:30)
[2019-01-19] MEDS: FLUTICASONE 50 MCG NASAL SPRAY 16 GM BOTTLE BOTH NARES SCH (08:30)
[2019-01-19] MEDS: amLODIPine 10 MG TABLET PO SCH (08:30)
== END 2019-01-19 11:33 | disposition home or self-care (01) | DRG 641 ==
LOC: N.EDINP 19:06 → N.ED 19:06 → SUATTDRO 22:59 → N.3E 23:30 → SUATTDRO 01-18 13:17
PROVIDERS: ADMIT Internal Medicine; ATTEND Internal Medicine